=== PATIENT | female | born 1975 | race African-American/Black ===

== ENCOUNTER 2017-05-01 19:00 | Inpatient (IN) | payer OTHER ==
[~2017-05-01] VITALS: Ht 167.6 cm; Wt 63.0 kg
[2017-05-01 22:01] LABS: CHLORIDE 106 mEq/L (99-109); POTASSIUM 3.4 mEq/L (3.7-5.4); SODIUM 139 mEq/L (136-147)
[2017-05-01 22:03] LABS: GLUCOSE 105 mg/dL (70-99)
[2017-05-01 22:04] LABS: ANION GAP 10 MEQ/L (2-14)
[2017-05-01 22:05] LABS: TOTAL BILIRUBIN 0.3 mg/dL (0.0-1.0)
[2017-05-01 22:06] LABS: ALKALINE PHOSPHATASE 52 IU/L (3-129)
[2017-05-01 22:07] LABS: GFR ESTIMATE (CALCULATED) > 59 mL/min/
[2017-05-01 22:08] LABS: UREA NITROGEN (BUN) 12 mg/dL (9-23)
[2017-05-01 22:10] LABS: LIPASE 26 U/L (1.0-51.0)
[2017-05-01 22:11] LABS: TROP-I INTERPRETATION NEGATIVE; TROPONIN-I < 0.01 ng/mL (0.0-0.30)
[2017-05-01 22:16] LABS: QUANTITATIVE HCG < 4.0 MIU/ML
[2017-05-01 22:53] LABS: EOSINOPHIL (%) 1.7 % (0-5); EOSINOPHIL COUNT 0.2 K/uL (0-0.3); HEMATOCRIT 28.4 % (36.0-46.0); IMMATURE GRANULOCYTE (%) 0.4 % (0.0-0.7); LYMPHOCYTE COUNT 1.3 K/uL (1.0-2.8); MCH 19.3 PG (29.0-34.0); MCHC 27.5 G/DL (30.0-36.0); MCV 70.1 FL (83-99); MEAN PLAT.VOLUME 10.2 uM^3 (9.5-12.4); MONOCYTE (%) 6.6 % (3-12); MONOCYTE COUNT 0.6 K/uL (0-0.8); NEUTROPHIL (%) 76.8 % (45-76); PLATELET COUNT 521 K/uL (156-360); RBC DIS.WIDTH-CV 17.5 % (11.8-14.6); RBC DIS.WIDTH-SD 43.8 % (39-53); RED BLOOD COUNT 4.05 M/uL (3.80-5.20); WHITE BLOOD COUNT 9.2 K/uL (4.1-10.2)
[2017-05-02 00:25] LABS: ADD MIUA? YES; BILIRUBIN NEGATIVE; BLOOD MODERATE; COLOR YELLOW ((YELLOW)); GLUCOSE (STRIP) NEGATIVE; KETONES 5; LEUKOCYTES NEGATIVE; NITRITE NEGATIVE; PROTEIN (STRIP) 30
[2017-05-02 00:31] LABS: INTER. NORMALIZED RATIO 1.1; PROTHROMBIN TIME 12.2 SEC (10.2-12.9)
[2017-05-02 00:33] LABS: PTT 27.9 SEC (25-37)
[2017-05-02 01:32] LABS: BACTERIA RARE /HPF; EPITHELIAL CELLS NONE SEEN /HPF; MUCUS 3+ /LPF; WHITE BLOOD CELLS 0-5 /HPF (0-5)
[2017-05-02 02:18] LABS: SPECIFIC GRAVITY 1.055 (1.000-1.030)
[2017-05-02 03:57] VITALS: BP 128/81
[2017-05-02 06:40] LABS: TROPONIN-I < 0.01 ng/mL (0.0-0.30)
[2017-05-02 06:43] LABS: TROP-I INTERPRETATION NEGATIVE
[2017-05-02 08:05] VITALS: BP 104/74
[2017-05-02 11:54] VITALS: BP 105/65
[2017-05-02 13:35] LABS: HEMATOCRIT 25.1 % (36.0-46.0); MCH 19.8 PG (29.0-34.0); MCHC 27.9 G/DL (30.0-36.0); MCV 70.9 FL (83-99); MEAN PLAT.VOLUME 10.5 uM^3 (9.5-12.4); PLATELET COUNT 490 K/uL (156-360); RBC DIS.WIDTH-CV 17.6 % (11.8-14.6); RBC DIS.WIDTH-SD 45.3 % (39-53); RED BLOOD COUNT 3.54 M/uL (3.80-5.20); WHITE BLOOD COUNT 7.2 K/uL (4.1-10.2)
[2017-05-02 13:48] LABS: TROP-I INTERPRETATION NEGATIVE; TROPONIN-I < 0.01 ng/mL (0.0-0.30)
[2017-05-02 13:50] LABS: Estimated Average Glucose 94 mg/dL (70-123); HEMOGLOBIN A1c (GLYCOHEMOGLOB) 4.9 % HGB (Below 5.7)
[2017-05-02 15:55] VITALS: BP 119/74
[2017-05-02] MEDS ORDERED: CAFFEINE200 M1 PO (16:03)
[2017-05-02] MEDS ORDERED: IRON325 M1 PO (16:03)
[2017-05-02] MEDS ORDERED: IBUPROFEN400 MG PO (16:03)
[2017-05-02] MEDS ORDERED: CYANOCOBALAMIN PO (16:06)
[2017-05-02] MEDS ORDERED: GINKO BILOBA PO (16:06)
[2017-05-02 19:38] VITALS: BP 112/77
[2017-05-02 23:40] VITALS: BP 123/82
[2017-05-03] VITALS (8 sets, daily range): BP systolic 110–143; BP diastolic 74–95
[2017-05-03 09:53] LABS: HEMATOCRIT 27.3 % (36.0-46.0); MCH 18.8 PG (29.0-34.0); MCHC 26.4 G/DL (30.0-36.0); MCV 71.5 FL (83-99); MEAN PLAT.VOLUME 11.3 uM^3 (9.5-12.4); PLATELET COUNT 403 K/uL (156-360); RBC DIS.WIDTH-CV 17.8 % (11.8-14.6); RBC DIS.WIDTH-SD 45.4 % (39-53); RED BLOOD COUNT 3.82 M/uL (3.80-5.20); WHITE BLOOD COUNT 7.9 K/uL (4.1-10.2)
[2017-05-03 11:11] LABS: FERRITIN 29 NG/ML (10-291)
[2017-05-03 11:43] LABS: ALKALINE PHOSPHATASE 41 IU/L (3-129); ANION GAP 9 MEQ/L (2-14); CHLORIDE 105 MEQ/L (99-109); GFR ESTIMATE (CALCULATED) > 59 mL/min/; GLUCOSE 104 mg/dL (70-99); POTASSIUM 4.4 MEQ/L (3.7-5.4); SAMPLE HEMOLYSIS CHECK 0; SAMPLE ICTERIC CHECK 0; SAMPLE LIPEMIA CHECK 0; SODIUM 140 MEQ/L (136-147); TOTAL BILIRUBIN 0.3 MG/DL (0.0-1.0); UREA NITROGEN (BUN) 9 mg/dL (9-23)
[2017-05-03] MEDS ORDERED: LOVENOX60 MG/0.6 SC (16:25)
[2017-05-04] VITALS (8 sets, daily range): BP systolic 121–142; BP diastolic 72–93
[2017-05-04 09:38] LABS: MCH 21.7 PG (29.0-34.0); MCHC 29.7 G/DL (30.0-36.0); MCV 73.1 FL (83-99); NRBC (%) 0.4 /100 WBC (0-0); PLATELET COUNT 492 K/uL (156-360); RBC DIS.WIDTH-CV 18.5 % (11.8-14.6); RBC DIS.WIDTH-SD 48.6 % (39-53); RED BLOOD COUNT 4.38 M/uL (3.80-5.20); WHITE BLOOD COUNT 9.8 K/uL (4.1-10.2)
[2017-05-04 10:33] LABS: ANION GAP 12 MEQ/L (2-14); CHLORIDE 109 MEQ/L (99-109); GFR ESTIMATE (CALCULATED) > 59 mL/min/; GLUCOSE 119 mg/dL (70-99); POTASSIUM 4.1 MEQ/L (3.7-5.4); SAMPLE HEMOLYSIS CHECK 0; SAMPLE ICTERIC CHECK 0; SAMPLE LIPEMIA CHECK 0; SODIUM 143 MEQ/L (136-147); UREA NITROGEN (BUN) 8 mg/dL (9-23)
[2017-05-05 03:59] VITALS: BP 115/71
[2017-05-05 06:18] LABS: HEMATOCRIT 31.1 % (36.0-46.0); MCH 21.8 PG (29.0-34.0); MCHC 29.3 G/DL (30.0-36.0); MCV 74.4 FL (83-99); MEAN PLAT.VOLUME 10.3 uM^3 (9.5-12.4); NRBC (%) 1.1 /100 WBC (0-0); PLATELET COUNT 521 K/uL (156-360); RBC DIS.WIDTH-SD 50.4 % (39-53); RED BLOOD COUNT 4.18 M/uL (3.80-5.20); WHITE BLOOD COUNT 10.4 K/uL (4.1-10.2)
[2017-05-05 06:24] LABS: ANION GAP 9 MEQ/L (2-14); CHLORIDE 108 MEQ/L (99-109); GFR ESTIMATE (CALCULATED) > 59 mL/min/; POTASSIUM 4.8 MEQ/L (3.7-5.4); SAMPLE HEMOLYSIS CHECK 0; SAMPLE ICTERIC CHECK 0; SAMPLE LIPEMIA CHECK 0; SODIUM 143 MEQ/L (136-147); UREA NITROGEN (BUN) 12 mg/dL (9-23)
[2017-05-05 06:40] LABS: GLUCOSE 80 mg/dL (70-99)
[2017-05-05 09:01] VITALS: BP 136/84
[2017-05-05 11:47] VITALS: BP 108/57
[2017-05-05 12:43] LABS: HEMATOCRIT 32.4 % (36.0-46.0); MCV 74.8 FL (83-99)
[2017-05-05] MEDS ORDERED: BENADRYL25 MG PO (12:46)
[2017-05-05] MEDS ORDERED: TYLENOL REGULA325 MG PO (12:46)
[2017-05-05 13:48] VITALS: BP 147/98
[2017-05-05 15:26] VITALS: BP 141/82
[2017-05-05] MEDS ORDERED: IRON325 MG PO (16:07)
[2017-05-08 16:17] LABS: HGBE Erythrocyte Cnt 4.21 Mill/uL (3.80-5.10); HGBE Hematocrit 32.7 % (35.0-45.0); HGBE Hemoglobin 9.2 g/dL (11.7-15.5); HGBE MCH 21.9 pg (27.0-33.0); HGBE MCV 77.7 FL (80.0-100.0); HGBE RDW 21.3 % (11.0-15.0)
== END 2017-05-05 18:08 | disposition home or self-care (01) | DRG 168 ==
LOC: EME 19:00 → EDOF 05-02 02:08 → 5SOUTH 05-02 02:08 → ENRESERV 05-02 02:12 → 5SOUTH 05-02 03:17
PROVIDERS: Hospitalist; Internal Medicine; Nurse Practitioner Adult Health; Physician Assistant; Physician Assistant Medical
PROC: 30233N1 Transfusion of Nonautologous Red Blood Cells into Peripheral Vein, Percutaneous Approach (ICD-10-PCS; principal; 2017-05-03)
PROC: 06H03DZ Insertion of Intraluminal Device into Inferior Vena Cava, Percutaneous Approach (ICD-10-PCS; principal; 2017-05-03)
DX: I26.99 Other pulmonary embolism without acute cor pulmonale (principal); D50.0 Iron deficiency anemia secondary to blood loss (chronic); N92.0 Excessive and frequent menstruation with regular cycle; F41.9 Anxiety disorder, unspecified; R19.00 Intra-abdominal and pelvic swelling, mass and lump, unspecified site; R73.03 Prediabetes; F22 Delusional disorders
CPT/HCPCS: 70450; 71275; 74177; 80048; 80053; 81003; 82728; 83021 90; 83036; 83690; 84439; 84443; 84484; 84702; 85014; 85018; 85025; 85027; 85610; 85730; 86900; 86901; 86920; 93005; 93306; 93971; 99281; 99284; C1769; C1894; J1650; J2250; J3010; J7030; J7050; P9016; Q0138; S0020

== ENCOUNTER 2017-07-13 06:49 | Inpatient (IN) | payer OTHER ==
[~2017-07-13] VITALS: Ht 167.6 cm; Wt 60.6 kg
[~2017-07-13 06:49] MED LIST: BENADRYL25 MG PO; CAFFEINE200 M1 PO; CYANOCOBALAMIN PO; GINKO BILOBA PO; IBUPROFEN400 MG PO; IRON325 M1 PO; IRON325 MG PO; LOVENOX60 MG/0.6 SC; TYLENOL REGULA325 MG PO
[2017-07-13 07:39] LABS: HEMATOCRIT 32.7 % (36.0-46.0); MCH 26.1 PG (29.0-34.0); MCHC 30.6 G/DL (30.0-36.0); MCV 85.4 FL (83-99); MEAN PLAT.VOLUME 10.1 uM^3 (9.5-12.4); PLATELET COUNT 354 K/uL (156-360); RBC DIS.WIDTH-CV 17.4 % (11.8-14.6); RBC DIS.WIDTH-SD 53.1 % (39-53); RED BLOOD COUNT 3.83 M/uL (3.80-5.20)
[2017-07-13 07:45] LABS: INTER. NORMALIZED RATIO 1.1; PROTHROMBIN TIME 12.3 SEC (10.2-12.9)
[2017-07-13 07:48] LABS: PTT 26.9 SEC (25-37)
[2017-07-13 07:55] LABS: CHLORIDE 109 mEq/L (99-109); POTASSIUM 3.3 mEq/L (3.7-5.4); SODIUM 139 mEq/L (136-147)
[2017-07-13 07:56] LABS: GLUCOSE 91 mg/dL (70-99)
[2017-07-13 07:58] LABS: ANION GAP 6 MEQ/L (2-14)
[2017-07-13 08:00] LABS: GFR ESTIMATE (CALCULATED) > 59 mL/min/
[2017-07-13 08:01] LABS: UREA NITROGEN (BUN) 10 mg/dL (9-23)
[2017-07-13 08:04] LABS: TROP-I INTERPRETATION NEGATIVE; TROPONIN-I < 0.01 ng/mL (0.0-0.30)
[2017-07-13 08:08] LABS: QUANTITATIVE HCG < 4.0 MIU/ML
[2017-07-13] MEDS ORDERED: MULTI-VITAMIN1 EAC4 PO (10:38)
[2017-07-13 15:05] VITALS: BP 131/82
== END 2017-07-13 13:00 | disposition short-term general hospital (02) | DRG 313 ==
LOC: EME 06:49 → EDOF 09:44 → ENRESERV 09:47 → CANRESERV 09:47 → ENRESERV 10:13 → EDOF 10:14 → ENRESERV 10:46 → CANRESERV 10:46 → EDOF 13:00
PROVIDERS: Emergency Medicine
DX: R07.9 Chest pain, unspecified (principal); M79.89 Other specified soft tissue disorders; N92.0 Excessive and frequent menstruation with regular cycle; M79.605 Pain in left leg; M79.604 Pain in right leg; F32.9 Major depressive disorder, single episode, unspecified; Z86.711 Personal history of pulmonary embolism; K59.00 Constipation, unspecified; R10.9 Unspecified abdominal pain
CPT/HCPCS: 71010; 71275; 80048; 82378; 84484; 84702; 85027; 85610; 85730; 86850; 86900; 86901; 93005; 93970; 99281; 99285; J1650; J7030